=== PATIENT | male | born 1990 | race Caucasian/White ===

== ENCOUNTER 2024-05-23 09:02 | Day surgery (SDC) | payer OTHER, SELFPAY ==
--- NOTE | 2024-05-20 11:48 | EKG12_ITS ---
Test Reason : PREOP Blood Pressure : / mmHG Vent. Rate : 082 BPM Atrial Rate : 082 BPM P-R Int : 126 ms QRS Dur : 092 ms QT Int : 376 ms P-R-T Axes : 064 072 046 degrees QTc Int : 439 ms Normal sinus rhythm Nonspecific T wave abnormality Abnormal ECG Confirmed by Seth Farias ([id number]), image editor FELIBERTO SHARMA ([id number]) on 05/21/2024 7:32:46 AM Referred By: Juan Vargas Confirmed By:Seth Farias
[2024-05-20 12:31] LABS: Absolute Lymphocyte Count 2.12 X10^3/uL (0.83-4.51); Basophil# 0.07 X10^3/uL; Basophil% 0.6 % (0-1); Eosinophil# 0.48 X10^3/uL; Eosinophils% 3.8 % (0-5); Hematocrit 44.4 % (40-54); Hemoglobin 15.1 g/dL (13.0-16.5); Lymphocyte # 2.12 X10^3/ul (0.83-4.51); Lymphocyte % 16.9 % (19-41); Mean Corpuscular Volume 91.2 fL (80-94); Mean Platelet Vol. 8.8 fl (6.2-12.0); Monocyte# 0.81 X10^3/uL; Monocyte% 6.5 % (0-10); NRBC Flagged by Analyzer 0 % (0-5); Neutrophil # 8.98 X10^3/uL (2.7-7.7); Neutrophil % 71.6 % (47-70); Platelet Count 448 K/mm3 (150-450); RBC Distribution Width CV 11.9 % (11.6-14.6); Red Blood Count 4.87 M/mm3 (4.6-6.2); White Blood Count 12.5 K/mm3 (4.4-11.0)
[2024-05-20 12:50] LABS: Anion Gap 7 (5-15); BUN 16 mg/dL (7-18); Calcium,Total 9.3 mg/dL (8.5-10.1); Chloride 102 mmol/L (98-107); Creatinine, Serum 0.94 mg/dL (0.70-1.30); EST Glomerular Filtration Rate 98 mL/min (>60); Est Glom Filt Rate - Afr Amer 118 mL/min (>60); Glucose 114 mg/dL (74-106); Potassium 3.5 mmol/L (3.5-5.1); Sodium Level 138 mmol/L (136-145)
[2024-05-20 12:59] LABS: Hemoglobin A1c 7.4 % (3.8-5.6)
[2024-05-23] VITALS (12 sets, daily range): BP systolic 127–153; BP diastolic 82–96; PULSE 87–123; RESP 14–17; TEMP 36.2–36.9; O2SAT 93–99; BMI 23.2
--- NOTE | 2024-05-23 09:25 | PRE.ANES_ITS ---
ASA Classification* ASA Classification ASA Classification: 2 Assessment & Plan Anesthesia* Anesthesia Assessment Anesthesia Assessment: Discussed sedation and/or anesthesia options, risks, benefits, and alternatives with patient/parents/legal guardian/POA. Questions invited. The patient/parents/legal guardian/POA seems to understand and agrees to proceed with anesthesia plan. Reviewed the physical assessment, medical history, allergy history and patient home medications list prior to surgery/procedure/anesthetic and documented any changes. Performed airway and anesthesia risk assessments. Anesthesia Type Anesthesia Type: General (see written pre anesthesia record for full assessment) Anesthesia Focused Assessment* Airway Assessment Mouth opens: >3 cm Mallampati Score: II Focused Labs Anesthesia Preop lab: CBC WBC 12.5 K/mm3 (4.4-11.0) H 05/20/24 12:01 RBC 4.87 M/mm3 (4.6-6.2) 05/20/24 12:01 Hgb 15.1 g/dL (13.0-16.5) 05/20/24 12:01 Hct 44.4 % (40-54) 05/20/24 12:01 Plt Count 448 K/mm3 (150-450) 05/20/24 12:01 CHEMISTRY Potassium 3.5 mmol/L (3.5-5.1) 05/20/24 12:01 Sodium 138 mmol/L (136-145) 05/20/24 12:01 BUN 16 mg/dL (7-18) 05/20/24 12:01 Creatinine 0.94 mg/dL (0.70-1.30) 05/20/24 12:01 Glucose 114 mg/dL (74-106) H 05/20/24 12:01 COAG Pre-Assessment Diagnosis/Proposed Procedure Planned Operative Procedure(s): DIAGNOSTIC SHOULDER ARTHROSCOPY RIGHT,POSS LABRAL REPAIR POSS ORIF Anesthesia History 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 When Was Last Pacemaker Check QUESTION #4 FULL TEXT: You/Your Family Experience fever (hyperthermia) with Anesthesia Last Oral Intake Last Oral intake: Last Oral Intake NPO since Meds taken in AM with sips of water? Meds patient instructed to take am of surgery PONV PONV - continuous absorption process operator: PONV - continuous absorption process operator Female No 05/20/24 08:22 HX of Motion Sickness Yes 05/20/24 08:22 HX of N/V After Surgery No 05/20/24 08:22 Non-Smoker No 05/20/24 08:22 Duration of Surgery greater Yes 05/20/24 08:22 than 60 minutes Number of Risk Factors 2 05/20/24 08:22 PONV Score Moderate Risk 05/20/24 08:22 Respiratory Assessment Respiratory Assessment - continuous absorption process operator: Respiratory Tract Infection Hx - continuous absorption process operator Hx Respiratory Tract Infection No 05/20/24 08:22 STOP Sleep Apnea STOP Sleep Apnea - continuous absorption process operator: STOP Sleep Apnea - continuous absorption process operator Hx Hypertension No 05/20/24 08:22 Hx Sleep Apnea No 05/20/24 08:22 CPAP BIPAP Do you snore loudly (louder No 05/20/24 08:22 than talking or can be heard Do you often feel tired/ No 05/20/24 08:22 fatigued/ sleepy during daytime? Has anyone observed you stop No 05/20/24 08:22 breathing during sleep? STOP Results Negative 05/20/24 08:22 QUESTION #5 FULL TEXT : Do you snore loudly (louder than talking or can be heard through closed doors)? 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 Specify any problems Hx of Preganancy in last 3 N/A 05/20/24 08:22 Months Nurse Filling Out Transfusion DSCHRIBER 05/20/24 08:22 & Questions: Date: 05/20/24 05/20/24 08:22 Time: 08:24 05/20/24 08:22 Patient unable to answer at this time (ie. confused, unrespo /Reproduction History /Reproductive History - continuous absorption process operator: /Reproductive Hx- continuous absorption process operator Hx Now No 05/20/24 08:22 Gestational Age (in weeks): EDC: Hx Hx Para Hx Section SAB No 05/20/24 08:22 Active Medications Active Medications: Current Medications Generic Name Dose Route Start Last Admin Trade Name Freq PRN Reason Stop Dose Admin Cefazolin Sodium 2 gm/ Sodium 110 mls @ 150 mls/hr 05/23/24 09:35 Chloride IV 05/23/24 10:18 PREOP ONE Lactated Ringer's 1,000 mls @ 15 mls/hr 05/23/24 09:15 IV .Q48H JOSUE PFSH Medical History History of renal disease Wears glasses Broken teeth Depression Marijuana use Alcohol use Insulin dependent diabetes mellitus High cholesterol Back pain Migraine headache Syncope Seizures Dietary restriction Heartburn Asthma Shortness of breath on exertion Vapes nicotine containing substance Leg cramps Home Medications ?Medication ?Instructions ?Recorded ?Last Taken ?Type atorvastatin 20 mg tablet 20 mg PO DAILY 05/20/24 Unknown History insulin aspart U-100 100 unit/mL 1 sliding scale dose subcut TID 05/20/24 Unknown History (3 mL) subcutaneous pen (Novolog FlexPen U-100 Insulin aspart) insulin glargine 100 unit/mL (3 50 unit subcut QHS 05/20/24 Unknown History mL) subcutaneous pen (Lantus Solostar U-100 Insulin) lisinopril 2.5 mg tablet 2.5 mg PO DAILY 05/20/24 Unknown History multivitamin 2 tab PO DAILY 05/20/24 Unknown History tramadol 50 mg tablet 50 mg PO Q6H PRN PRN pain 05/20/24 Unknown History Allergy/AdvReac Type Severity Reaction Status Date / Time No Known Allergies Allergy Verified 05/20/24 08:17 Surgical History Hx of tonsillectomy Social History Smoking Status: Current some day smoker tobacco type: smokeless tobacco Review of Systems (Anesthesia) ROS Narrative System reviewed and no additional complaints, except as documented.
[2024-05-23] MEDS: Lactated Ringers 1,000 ML 15 ML IV (09:43)
[2024-05-23 09:49] LABS: Bedside Glucose 165 mg/dL (74-106)
[2024-05-23] MEDS: Cefazolin 2 GM in 0.9% Normal Saline (100mL Bag) 100 ML IV (11:37)
[2024-05-23] MEDS: Epinephrine (1 mg/ml) 1 MG/ML VIAL (12:06)
--- NOTE | 2024-05-23 13:10 | RAD_ITS ---
STUDY: X-RAY - RIGHT SHOULDER REASON FOR EXAM: Male, 33 years old. Fracture. TECHNIQUE: 3 fluoroscopic spot films of the right shoulder. COMPARISON: Right shoulder radiographs dated 05/14/2024. FINDINGS: The previous right shoulder radiographs demonstrated a slightly displaced fracture of the greater tuberosity of the humeral head. The fluoroscopic spot films demonstrate a nondisplaced fracture of the humeral head. Normal acromioclavicular joint. Normal acromion. There is no new acute fracture. RAD/Shoulder min 2 Views IMPRESSION: Fluoroscopic spot films demonstrating a nondisplaced fracture of the humeral head. Electronically Signed: Chaka Freire MD at 14:31 EDT ,
[2024-05-23 14:42] LABS: Bedside Glucose 218 mg/dL (74-106)
--- NOTE | 2024-05-23 14:47 | PCM.POST.ANE ---
Anesthesia: Postop Eval I Current Vital Signs Temperature: 97.1 F Pulse Rate: 102 Blood Pressure: 135/86 Respiratory Rate: 16 Pulse Ox: 99 Oxygen Delivery Method: Room Air Assessment Airway patent: Yes Spontaneous unlabored respirations: Yes Mental status: Calm and Asleep nausea: No Vomiting: No Anesthesia Complication: No Fluid Hydration Crystalloid volume administer (ml): 1,800 Total IV fluid infused: 1,800 Progress Note Anesthesia document: Postop Eval 1 completed: Yes
--- NOTE | 2024-05-23 14:53 | PCM.OPRPT ---
Report of Operation Date of Procedure: 05/23/24 Description of Surgical Findings:: Preoperative diagnosis: 1. Right glenohumeral fracture dislocation with displaced greater tuberosity fracture and anterior inferior glenoid fracture Postoperative diagnosis: 1. Right glenohumeral fracture dislocation with displaced greater tuberosity fracture and anterior inferior glenoid fracture 2. Right glenoid labrum tear Procedure: 1. Right shoulder arthroscopic labral repair 2. Open reduction internal fixation right proximal humerus greater tuberosity Surgeon: Juan Vargas DO transportation assistant: Mitra Hurd PA-C Anesthesia: General LMA with interscalene block Anesthesiologist: Orville Mcfadden MD Estimated blood loss: 50 cc IV fluids: Per anesthesia record Urine output: None recorded Specimen: None Implants: Arthrex 1.8 knotless fiber tack anchor x 3, Arthrex 2.6 fiber tack anchor x 3, Arthrex 4.75 mm bio composite swivel lock anchor x 2, DBX putty 0.5 cc Complications: None apparent Intraoperative findings: Small less than 10% bony Bankart lesion, traumatic tearing of the anterior glenoid labrum from the 4:00 to 1 o'clock position. Comminuted displaced greater tuberosity fracture. Intact rotator cuff. Fracture stable following fixation. Preoperative indications: This is a 33-year-old male who is a type I diabetic who had a unwitnessed apparent seizure approximately 10 days ago. 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 He states he came home from work that evening and had laid down to take a nap which he will do from time to time. Patient reports she does enjoy staying up late and playing video games typically and this was not unusual behavior for him. He denied any prodromal symptoms. He states the next thing he knew he woke up at 2 AM in the bathroom with right shoulder pain. Pain persisted and he was brought to the emergency department. X-rays revealed an anterior inferior shoulder dislocation with a displaced comminuted greater tuberosity fracture as well as a minimally displaced small bony Bankart lesion. Closed reduction was performed in emergency department. He was placed in a sling. He followed up in our office as well as with his PCP. This was the patient's first reported seizure. He did report that he had injury consistent with biting his tongue. Patient was neurovascularly intact. I evaluated the patient in the office last week. He was concerned about the risk of long-term instability of his shoulder and recommended surgical intervention in the form of reduction internal fixation of the right proximal humerus, diagnostic arthroscopy and likely labral repair however I did not feel the preoperative MRI would likely pattern changer and repairer and was likely to unnecessarily delay care. I discussed the case with the patient's PCP Dr. Samaniego. We both agreed that despite the unique circumstances of the patient's seizure, waiting for full neurologic evaluation may pose unnecessary risk to the patient and result and potential lifelong loss of right shoulder function and felt proceeding with surgery was appropriate. I discussed the case with the patient at length. I reviewed the risks, benefits, and alternatives to the procedure. Risks included but were not limited to bleeding, infection, loss of life or limb, need for additional surgery, persistent pain, nonhealing bone or wounds or labrum, persistent instability, stiffness, neurovascular injury, DVT or PE. Informed consent obtained. Description of procedure: Patient was identified in preoperative holding area by name, medical record number, and date of . The operative extremities marked. All questions were answered patient satisfaction. Interscalene block was administered by anesthesia staff prior to procedure. At time of his procedure, patient brought to the op suite positioned supine operating table. General anesthesia was induced and endotracheal tube placed. Patient was then positioned along the beachchair position. Elevating prominences were well-padded. We prepped and draped the right upper extremity in normal, sterile orthopedic fashion. We performed timeout with all parties in attendance in agreement the side, site, operation to be performed. No concerns voiced elected proceed with surgery. 2 g Ancef was ministered IV prior to the incision by anesthesia staff. I first establish a standard posterior portal 2 fingerbreadths inferior medial to the posterior border scapular spine. Blunt tipped trocar was then driven into the glenohumeral joint. Joint was filled with normal saline with epinephrine. Diagnostic arthroscopy was commenced. Hemarthrosis was noted and irrigated through. Anterior interval portal was established just superior to the subscapularis with a 11 blade scalpel. Capsular tearing was noted anteriorly. Probing of the subscapularis demonstrated no injury. The greater tuberosity fracture was easily seen and retracted superior medially. The fracture bed was also seen. This was debrided from bony and bloody fragments with the arthroscopic shaver. The articular margin was intact. Probing of the glenoid labrum demonstrated tearing from the 1:00 to 4 o'clock position with a complete avulsion just anterior to the biceps anchor. I then placed a second superior interval portal for fixation of the labrum. Rigid cannulae were placed. I then proceeded with fixation of her glenoid labrum placing 3 anchors from the 4:00 to 2 o'clock position roughly. These were placed sequentially utilizing fiber tack anchors. 2 screws placed in excellent fixation achieved. Sutures were passed through the anterior capsule and labrum with a suture lasso. Suture was shuttled and tensioned in standard fashion with excellent reapproximation of labral anatomy and improved tensioning of the anterior capsule. I then placed a single medial row anchor for planned suture fixation of our tuberosity fracture. A fiber tack anchor was placed at the anterior margin of the fracture at the articular margin. This achieved excellent fixation. I attempted to place a second anchor approximately 1 cm posterior but was unable to achieve the desired trajectory due to the fracture. I proceeded with a open repair at this time. A small mini open/deltoid split approach was selected for. Longitudinal incision was made sharply along the lateral shoulder in line with the raphae of the anterior medial heads. Fascia was opened between the raphae. Blunt dissection was carried down to the level of the bursa which was opened with blunt dissection. Rotator cuff and fracture was seen. Traction suture was applied in the rotator cuff. Then placed 2 additional fiber tack anchors for medial row in standard fashion. Sutures were then passed sequentially through the supraspinatus with a free needle. Sutures were tensioned and placed through the eyelet of a swivel lock anchors achieving 2 swivel lock anchor for a lateral repair which I placed approximately 1 cm distal to the margin in the most proximal portion of the diaphysis of the humerus. Fracture was held reduced however there was significant impaction and I placed 0.5 cc of DBX putty into the impacted region of the bone after elevating with a freer elevator. I then held the position of the greater tuberosity in a rafting position and placed 2 orthogonal K wires for preliminary fixation. I then proceeded with fixation of our suture repair construct tensioning suture and placing 2 swivel lock anchors for a lateral row. There was excellent fixation and sutures were cut. The shoulder was brought through a range of motion and fracture. Stable. There was no obvious gross instability of the shoulder. Wound was copiously irrigated normal saline solution. I closed the deltoid fascia watertight with a running, locking 0 Vicryl suture. Dermis was reapproximated with 2-0 Vicryl suture. The remaining skin incisions were closed with interrupted simple 3-0 nylon suture. Bulky sterile compression dressing was applied. Patient was placed in UltraSling. He is to proceed with ectopy in the operative suite and transferred to his gurney and subsequent to PACU in stable condition. He tolerated the procedure well without complication. Need for skilled dental assistant instructor: Mitra Hurd PA-C was critical to the outcome of the case. During the course of the procedure the physician dental assistant instructor played a vital role. Her intimate knowledge of my steps in the procedure aided in safe and expedient completion of the procedure. The PA played a vital role in positioning particularly in obtaining the appropriate positioning. The PA was also vital in the retraction of soft tissues during the exposure and protecting vital structures. The PA was also vital and obtaining fracture reduction and assisting with hardware placement. She also played a vital role in closure and sling application with my direct supervision. Postoperative plan: Nonweightbearing to the upper extremity. Pendulums only x 2 weeks Physical therapy to start in 2 weeks Oxycodone prescription Thursday. Tylenol and ibuprofen encouraged. Aspirin 81 mg twice daily for DVT prophylaxis. Further seizure workup per neurology/PCP Advised patient and family that patient should be not left alone over the next 72 hours due to increased risk of seizure activity following anesthesia Follow-up in 2 weeks for x-rays upon arrival and suture removal
[2024-05-23] MEDS: Ketorolac 30 MG/ML Syringe IV (14:58)
--- NOTE | 2024-05-23 16:37 | PCM.POSTANE2 ---
Anesthesia Postop Eval I Sum Postop Eval Completion status Anesthesia document: Postop Eval 1 completed: Yes Anesthesia Postop Eval I Summary Anesthesia Postop Eval I Summary: Anesthesia Postop Eval I: Assessment Summary Airway patent Yes 05/23/24 14:48 ADMIN ASSISTANT.MDOT Spontaneous unlabored Yes 05/23/24 14:48 ADMIN ASSISTANT.MDOT respirations Mental status Calm,Asleep 05/23/24 14:48 ADMIN ASSISTANT.MDOT nausea No 05/23/24 14:48 ADMIN ASSISTANT.MDOT Vomiting No 05/23/24 14:48 ADMIN ASSISTANT.MDOT Anesthesia Postop Eval I: Fluid Summary Crystalloid volume administer 1,800 05/23/24 14:48 ADMIN ASSISTANT.MDOT (ml) Colloids volume administered ( ml) Blood Product volume administered (ml) Total IV fluid infused 1,800 05/23/24 14:48 ADMIN ASSISTANT.MDOT Anesthesia Postop Eval I: Summary Notes Anesthesia Complication No 05/23/24 14:48 ADMIN ASSISTANT.MDOT Anesthesia Complication Comment: Post-operative progress note Anesthesia: Postop Eval II Evaluation Mental status: Awake and Calm Pain Level: 1 nausea: No Vomiting: No Progress Note Post-operative progress note: Patient had fast heart rate in PACU (up to 131). He had quite a bit of fluids(1800cc) intra-op, so after having patient empty his bladder, heartrate came down to 112. Still elevated compared to preop but with no pain and no other symptoms. Okay to discharge from PACU. Complications Anesthesia Complication: No
== END 2024-05-23 17:30 | disposition home or self-care (01) ==
LOC: SDC 09:02 → AC 09:03
PROVIDERS: Anesthesiology; PCP Family Medicine; Referring Provider Student in an Organized Health Care Education/Training Program; Visit Provider Student in an Organized Health Care Education/Training Program
PROC: (CPT 29806; principal; 2024-05-23 10:55)
DX: S42.141A Displaced fracture of glenoid cavity of scapula, right shoulder, initial encounter for closed fracture (principal); E10.9 Type 1 diabetes mellitus without complications; Z79.4 Long term (current) use of insulin; S43.431A Superior glenoid labrum lesion of right shoulder, initial encounter; I10 Essential (primary) hypertension; E78.00 Pure hypercholesterolemia, unspecified; F17.290 Nicotine dependence, other tobacco product, uncomplicated; Z79.899 Other long term (current) drug therapy; X58.XXXA Exposure to other specified factors, initial encounter
CPT/HCPCS: 23585; 29806; 64415; 00450; 36415; 73030; 76000; 80048; 82962; 83036; 85025; 85730; 93005; J7120; J2405